=== PATIENT | female | born 1970 | race Caucasian/White ===

== ENCOUNTER → 2016-09-14 | Outpatient (CLI) | payer OTHER | END | disposition home or self-care (01) | LOC: LABWHC1 09:23 | PROVIDERS: ATTEND Psychiatry & Neurology Pain Medicine | DX: E55.9 Vitamin D deficiency, unspecified (principal) | CPT/HCPCS: 36415; 82306 ==

== ENCOUNTER → 2016-12-03 | Outpatient (CLI) | payer OTHER ==
--- NOTE | 2016-12-03 22:22 | MR ---
EXAMINATION TYPE: MR brain wo/w con DATE OF EXAM: 12/03/2016 4:29 PM COMPARISON: MRI brain July 20, 2016. HISTORY: Headaches not further specified per order or patient. TECHNIQUE: Multiplanar, multisequence images of the brain and brainstem is performed without and with IV contras t, utilizing 15 mL intravenous MultiHance . FINDINGS: Diffusion weighted images demonstrate no evidence of a recent infarct or other diffusion ab normality. There is no worrisome extra-axial fluid collection. The ventricular system and cisternal spaces are normal in size and appearance. The brain volume is age appropriate. There are few scatte red foci of T2 hyperintensity seen throughout the white matter bilaterally. Approximately 5-8scattere d lesions are redemonstrated. Lesions are nonspecific in appearance and distribution. Largest measure s 4 mm right posterior frontal lobe on axial image 22. No significant change from prior study is seen . Midline structures demonstrate normal morphology. The craniocervical junction appears within normal limits. Post contrast images demonstrate no abnormal enhancement. The dural venous sinuses appear pa tent. Artifact at level of the bilateral globes is present. There is mild mucosal thickening with dep endent fluid in the left sphenoid sinus on current study. Remainder visualized paranasal sinuses are clear. IMPRESSION: 1. Mild nonspecific white matter changes without significant change from prior study, finding could r eflect ischemic change related to product of migraine headaches. Other etiologies are not excluded. 2. New acute on chronic left sphenoid sinus disease.
== END | disposition home or self-care (01) ==
LOC: RADMRIMAIN 15:42
PROVIDERS: ATTEND Psychiatry & Neurology Pain Medicine
DX: R90.82 White matter disease, unspecified (principal); R51 Headache
CPT/HCPCS: 70553; A9577

== ENCOUNTER → 2017-01-14 | Outpatient (CLI) | payer OTHER ==
--- NOTE | 2017-01-14 22:08 | MR ---
EXAMINATION TYPE: MR cervical spine wo con DATE OF EXAM: 01/14/2017 10:03 PM COMPARISON: NONE HISTORY: ongoing neck pain and stiffness Multiplanar MultiSpin echo imaging of the cervical spine was performed. Comparison: none C2-C3: No evidence for degenerative disc disease. No disc bulge/herniation or protrusion. No Canal stenosis. Foramina are patent bilaterally. C3-C4: No evidence for degenerative disc disease. No disc bulge/herniation or protrusion. No Canal stenosis. Foramina are patent bilaterally. C4-C5: There is mild disc desiccation noted. Mild posterocentral disc bulge with mild effacement vent ral thecal sac. No evidence of disc herniation or central stenosis. Neural foramina are patent bilate rally. C5-C6: Mild disc desiccation with a small left paracentral disc protrusion. Mild effacement ventral t hecal sac. No evidence for cord contact or central stenosis. Neural foramina are patent bilaterally. C6-C7: No evidence for degenerative disc disease. No disc bulge/herniation or protrusion. No Canal stenosis. Foramina are patent bilaterally. C7-T1: No evidence for degenerative disc disease. No disc bulge/herniation or protrusion. No Canal stenosis. Foramina are patent bilaterally. Cervical segments are intact. There is normal alignment. Cervical spinal cord is of normal signal. Craniovertebral junction relationships are within normal limits. IMPRESSION: 1. Degenerative disc disease at C4-5 and C5-6. 2. Small left paracentral disc protrusion C5-6 as noted above.
== END | disposition home or self-care (01) ==
LOC: RADMRIMAIN 21:26
PROVIDERS: ATTEND Physician Assistant Medical
DX: M50.121 Cervical disc disorder at C4-C5 level with radiculopathy (principal); M50.122 Cervical disc disorder at C5-C6 level with radiculopathy
CPT/HCPCS: 72141

== ENCOUNTER → 2017-03-31 | Outpatient (CLI) | payer OTHER | END | disposition home or self-care (01) | LOC: LABWHC1 13:43 | PROVIDERS: ATTEND Psychiatry & Neurology Pain Medicine | DX: G89.4 Chronic pain syndrome (principal) | CPT/HCPCS: 36415; 93005 ==

== ENCOUNTER → 2018-01-25 | Outpatient (CLI) | payer OTHER | END | disposition home or self-care (01) | LOC: LABWHC1 15:35 | PROVIDERS: ATTEND Psychiatry & Neurology Pain Medicine | DX: Z01.812 Encounter for preprocedural laboratory examination (principal) | CPT/HCPCS: 36415; 93005 ==

== ENCOUNTER 2018-08-25 08:52 | Day surgery (SDC) | payer MEDICARE ==
[2018-08-23 17:54] VITALS: BMI 29.2
[~2018-08-25 08:52] MED LIST: LACTATED RINGERS 1,000 ML IV SCH; LIDOCAINE 1% 20 ML VIAL (10MG/ML) FOR IV START INTRADERMA PRN
[2018-08-25 10:13] VITALS: TEMP 99.2
[2018-08-25] MEDS ORDERED: ONDANSETRON 4 MG/2 ML VIAL IVP ONE (10:21)
[2018-08-25] MEDS ORDERED: LIDOCAINE 1% INJ 10MG/ML (20 ML MDV) ONE (10:47)
[2018-08-25] MEDS ORDERED: PROPOFOL 10 MG/ML 20 ML VIAL IV ONE (10:47)
--- NOTE | 2018-08-25 11:16 | P.PCN ---
Date of Procedure: 08/25/18 Procedure(s) Performed: Procedure: Esophagogastroduodenoscopy and biopsy. Preoperative diagnosis: Epigastric pain and nausea and vomiting. Postoperative diagnosis: Sliding hiatal hernia with no obvious esophagitis or complicated reflux disease. Mild antral gastritis. Biopsies obtained from the duodenum, antrum and esophagus. Preparation and sedation: Was provided by anesthesia. Brief clinical history: The patient is a 48-year-old female who is scheduled for this evaluation for epigastric pain, nausea and vomiting off for months duration. She has not improved with acid suppressive therapy. This evaluation is to assess for peptic ulcer disease or other pathology. Procedure: With the patient on her left lateral decubitus position and after informed consent and adequate sedation, I passed the Olympus-GIF 190 H video upper endoscope through the cricopharyngeus down the esophagus. GE junction was around 37 cm from the incisors and there was a 2 cm sliding hiatal hernia but no obvious esophagitis or complicated reflux disease. The endoscope was then passed into the stomach which was insufflated with air and inspected in detail including the retroflex view in the cardia. There was some mottling and erythema in the antrum but no ulcers or erosions. Pyloric channel, duodenal bulb, post bulbar area and descending duodenum appeared within normal limits. Because of her symptoms, I obtained biopsies from the duodenum, antrum and esophagus then the endoscope was withdrawn. The patient tolerated the procedure well. Plan: The patient was reassured. Will await biopsy results and make further plans based on her course and biopsy results. She will follow-up with you as planned and I will be happy to see as outpatient if her symptoms persist.
[2018-08-25 11:17] VITALS: RESP 18
[2018-08-25 11:34] VITALS: BP 105/56; PULSE 80
== END 2018-08-25 12:16 | disposition home or self-care (01) ==
LOC: ORWHC2ENDO 08:52
DX: K29.50 Unspecified chronic gastritis without bleeding (principal); K44.9 Diaphragmatic hernia without obstruction or gangrene; M79.7 Fibromyalgia; K21.9 Gastro-esophageal reflux disease without esophagitis; G43.909 Migraine, unspecified, not intractable, without status migrainosus; G90.50 Complex regional pain syndrome I, unspecified; Z88.5 Allergy status to narcotic agent; Z79.891 Long term (current) use of opiate analgesic; Z79.899 Other long term (current) drug therapy
CPT/HCPCS: 81025; 88305; 43239; J2405; J2001; J2704

== ENCOUNTER 2019-04-03 03:24 | Inpatient (IN) | payer MEDICARE ==
[2019-04-03 04:50] VITALS: BMI 30.4
[2019-04-03] MEDS ORDERED: MORPHINE SULFATE 2 MG/ML SYRINGE IVP PRN (08:35)
[2019-04-03] MEDS: SODIUM CHLORIDE 0.9% 1,000 ML IV SCH ×2 (09:15→18:02)
[2019-04-03 09:38] LABS: Basophils % (A) 0 %; Eosinophils # (A) 0.2 k/uL (0-0.7); Eosinophils % (A) 2 %; HCT 37.5 % (34.0-46.0); HGB 12.4 gm/dL (11.4-16.0); Lymphocytes # (A) 3.1 k/uL (1.0-4.8); Lymphocytes % (A) 35 %; MCH 31.8 pg (25.0-35.0); MCHC 32.9 g/dL (31.0-37.0); MCV 96.5 fL (80.0-100.0); Mean Platelet Volume 7.1; Monocytes # (A) 0.5 k/uL (0-1.0); Monocytes % (A) 6 %; Neutrophils # (A) 5.1 k/uL (1.3-7.7); Neutrophils % (A) 56 %; Platelet Count 280 k/uL (150-450); RBC 3.89 m/uL (3.80-5.40); RDW 12.5 % (11.5-15.5); WBC 9.1 k/uL (3.8-10.6)
[2019-04-03 09:57] LABS: African American GFR (CKD) >90 (>60 ml/min/1.73 sqM); Anion Gap 5 mmol/L; Blood Urea Nitrogen 15 mg/dL (7-17); Calcium 8.5 mg/dL (8.4-10.2); Carbon Dioxide 28 mmol/L (22-30); Chloride 107 mmol/L (98-107); Glucose 75 mg/dL (74-99); Sodium 140 mmol/L (137-145)
--- NOTE | 2019-04-03 10:48 | XR ---
EXAMINATION TYPE: XR KUB DATE OF EXAM: 04/03/2019 10:27 AM CLINICAL HISTORY: Right-sided ureteral calculus. Abdominal pain. TECHNIQUE: Single supine KUB image of the abdomen is obtained. COMPARISON: None. FINDINGS: Oral contrast is seen within the colon. This obscures the course of the right ureter. Contr ast is also seen within the appendix in the right lower quadrant. There are ureteral calculus is not definitively seen. Centrally placed IUD is noted. Few phleboliths in the pelvis. Osseous structures a ppear intact. No dilated large or small bowel. IMPRESSION: The right ureteral calculus is not definitively seen as there is oral contrast throughout the colon and within the appendix obscuring the course of the right ureter.
[2019-04-03] MEDS: ONDANSETRON 4 MG/2 ML VIAL IVP PRN ×2 (10:55→17:59)
--- NOTE | 2019-04-03 13:21 | P.GSCN ---
History of Present Illness Consult date: 04/03/19 Reason for Consult: Right ureteral calculus Requesting physician: Louisa Roberson History of present illness: The patient is a 48-year-old white female with no prior history of urolithiasis. She experienced acute onset of right flank pain radiating to the abdomen on 03/29/2019. For the next several days, her symptoms were available in severity. She was ultimately seen at [facility] and found to have mild right hydronephrosis due to a 5 mm right distal ureteral calculus. She was transferred to [facility] for further management. In addition to pain, she has experienced nausea and vomiting as well as pressure to void. She has not been treated for a UTI in the past 20 years or so. Review of Systems - Constitutional Reports chills, Denies fever - Gastrointestinal Reports nausea, Reports vomiting - Genitourinary Genitourinary: Reports flank pain, Denies hematuria Past Medical History Past Medical History: Fibromyalgia, GERD/Reflux Additional Past Medical History / Comment(s): frequent nausea & dry heaves for 4 months, abd pain, RSD, chronic migraines, has IUD, urinary frequency, chronic back and neck pain- herniated bulging discs in neck History of Any Multi-Drug Resistant Organisms: None Reported Past Surgical History: Orthopedic Surgery, Tubal Ligation Additional Past Surgical History / Comment(s): arthroscopic knee surgeries, colonoscopy, D & C Past Anesthesia/Blood Transfusion Reactions: Postoperative Nausea & Vomiting (PONV) Smoking Status: Former smoker Past Alcohol Use History: Rare Additional Past Alcohol Use History / Comment(s): quit smoking 2013, smoked since teens 1ppd Past Drug Use History: None Reported - Past Family History Mother Family Medical History: CVA/TIA, Myocardial Infarction ([place]) Medications and Allergies Home Medications Medication Instructions Recorded Confirmed Type HYDROcodone/APAP 10-325MG [[place] 1 tab PO Q6H PRN 09/14/16 04/03/19 History 10-325] Ibuprofen [Motrin] 600 mg PO Q6HR PRN 09/14/16 04/03/19 History Cetirizine HCl [Zyrtec] 10 mg PO DAILY 08/23/18 04/03/19 History Esomeprazole Magnesium [NexIUM] 40 mg PO DAILY 08/23/18 04/03/19 History Fluticasone Nasal [place] [Flonase 2 spr EA NOSTRIL DAILY 08/23/18 04/03/19 Histor y Nasal [place]] Prochlorperazine [Compazine] 10 mg PO Q6H PRN 08/23/18 04/03/19 History diphenhydrAMINE [Benadryl] 25 mg PO BID PRN 08/23/18 04/03/19 History Gabapentin [Neurontin] 300 mg PO BID 04/03/19 04/03/19 History Methocarbamol [Robaxin] 500 mg PO HS PRN 04/03/19 04/03/19 History Mirabegron [Myrbetriq] 50 mg PO DAILY 04/03/19 04/03/19 History Allergies Allergy/AdvReac Type Severity Reaction Status Date / Time codeine AdvReac Nausea Verified 04/03/19 08:09 Surgical - Exam Vital Signs Temp Pulse Resp BP Pulse Ox 98.2 F 71 18 113/74 97 04/03/19 04:35 04/03/19 04:35 04/03/19 04:35 04/03/19 04:35 04/03/19 04:35 - General well developed, well nourished, no distress - Neck no masses, trachea midline - Abdomen Abdomen: soft, tender (Mild right lower quadrant tenderness), no guarding, no rigid, no rebound, no distended - Psychiatric oriented to time, oriented to person, oriented to place, speech is normal, memory intact Results - Labs 04/03/19 09:18 04/03/19 09:18 Diabetes panel 04/03/19 Range/Units 09:18 Sodium 140 (137-145) mmol/L Potassium 4.0 (3.5-5.1) mmol/L Chloride 107 (98-107) mmol/L Carbon Dioxide 28 (22-30) mmol/L BUN 15 (7-17) mg/dL Creatinine 0.79 (0.52-1.04) mg/dL Glucose 75 (74-99) mg/dL Calcium 8.5 (8.4-10.2) mg/dL Calcium panel 04/03/19 Range/Units 09:18 Calcium 8.5 (8.4-10.2) mg/dL Pituitary panel 04/03/19 Range/Units 09:18 Sodium 140 (137-145) mmol/L Potassium 4.0 (3.5-5.1) mmol/L Chloride 107 (98-107) mmol/L Carbon Dioxide 28 (22-30) mmol/L BUN 15 (7-17) mg/dL Creatinine 0.79 (0.52-1.04) mg/dL Glucose 75 (74-99) mg/dL Calcium 8.5 (8.4-10.2) mg/dL Adrenal panel 04/03/19 Range/Units 09:18 Sodium 140 (137-145) mmol/L Potassium 4.0 (3.5-5.1) mmol/L Chloride 107 (98-107) mmol/L Carbon Dioxide 28 (22-30) mmol/L BUN 15 (7-17) mg/dL Creatinine 0.79 (0.52-1.04) mg/dL Glucose 75 (74-99) mg/dL Calcium 8.5 (8.4-10.2) mg/dL - Imaging Abdominal x-ray: report reviewed, image reviewed CT scan - abdomen: report reviewed Assessment and Plan (1) Calculus of ureter Current Visit: Yes Status: Acute Code(s): N20.1 - CALCULUS OF URETER SNOMED Code(s): 11489496 (2) Hydronephrosis with renal and ureteral calculus obstruction Current Visit: Yes Status: Acute Code(s): N13.2 - HYDRONEPHROSIS WITH RENAL AND URETERAL CALCULOUS OBSTRUCTION SNOMED Code(s): 673170655 Plan: I had a very lengthy discussion with the patient regarding her ureteral calculus. Urinalysis showed 510 WBCs/HPF, but only trace leukocyte esterase and negative nitrate. A urine culture is pending, but I do not believe she is infected. The stone is visible on a KUB x-ray performed this morning. It should be noted that contrast is seen within a mildly dilated right ureter down to the calculus. I explained that her stone has approximately a 75% chance of passing. Management options include medical expulsion therapy, ureteroscopy with laser lithotripsy, and extracorporal shockwave lithotripsy (ESWL). The pros and cons of each approach were reviewed in detail, as well as potential risks. She has elected to undergo ESWL on 04/06/2019, the next available date. Arrangements will be made for this, and I'm hopeful that her symptoms can be controlled with oral medication to allow discharge either later today or tomorrow. Time with Patient: Greater than 30
[2019-04-03] MEDS ORDERED: HYDROcodone/APAP 5-325MG 1 EACH TAB PO PRN (15:53)
[2019-04-03] MEDS: KETOROLAC 30 MG/ML 1 ML VIAL IVP PRN (17:57)
[2019-04-03] MEDS: HYDROcodone/APAP 5-325MG 1 EACH TAB PO PRN (20:03)
--- NOTE | 2019-04-03 20:33 | P.HPIM ---
History of Present Illness H&P Date: 04/03/19 Chief Complaint: Abdominal pain Patient is a 48-year-old female with known history of fibromyalgia, GERD usually presented to hospital with complaints of right lower quadrant abdominal pain started since 03/29/2019. Patient says that the pain extended to right flank and back pain. Patient did have nausea and vomiting. Patient was also having trouble voiding for the past few days. Patient presents to ER at [facility] yesterday where She had CT abdomen pelvis showed a 5 mL right ureteral stone with hydronephrosis. Patient was eventually transferred to [facility] for evaluation by urology. Patient was also found have cloudy urine with large leukocyte esterase and elevated WBC in the urinalysis. Patient was given a dose of Zosyn before transfer. Urine culture was sent. Patient denied any fever or chills. No chest pain or shortness of breath. No headache or dizziness or lightheadedness. Review of Systems Constitutional: Patient denies any fever or chills . No generalized weakness or weight loss. Abdomen: Patient denied nausea vomiting and diarrhea and abdominal pain. Right flank pain and right lower quadrant pain. Cardiovascular: Patient denies any chest pain or short of breath no palpitations. Respiratory: patient denied any cough is from production. No shortness of breath Neurologic: Patient denied any numbness or tingling headache. Musculoskeletal: Patient denies any complaints of joint swelling or deformity. Skin: Negative Psychiatric: Negative Endocrine: No heat or cold intolerance. No recent weight gain. Genitourinary: No dysuria or hematuria. All other 14 point ROS negative except the above Past Medical History Past Medical History: Fibromyalgia, GERD/Reflux Additional Past Medical History / Comment(s): frequent nausea & dry heaves for 4 months, abd pain, RSD, chronic migraines, has IUD, urinary frequency, chronic back and neck pain- herniated bulging discs in neck History of Any Multi-Drug Resistant Organisms: None Reported Past Surgical History: Orthopedic Surgery, Tubal Ligation Additional Past Surgical History / Comment(s): arthroscopic knee surgeries, colonoscopy, D & C Past Anesthesia/Blood Transfusion Reactions: Postoperative Nausea & Vomiting (PONV) Smoking Status: Former smoker Past Alcohol Use History: Rare Additional Past Alcohol Use History / Comment(s): quit smoking 2013, smoked since teens 1ppd Past Drug Use History: None Reported - Past Family History Mother Family Medical History: CVA/TIA, Myocardial Infarction ([place]) Medications and Allergies Home Medications Medication Instructions Recorded Confirmed Type HYDROcodone/APAP 10-325MG [[place] 1 tab PO Q6H PRN 09/14/16 04/03/19 History 10-325] Ibuprofen [Motrin] 600 mg PO Q6HR PRN 09/14/16 04/03/19 History Cetirizine HCl [Zyrtec] 10 mg PO DAILY 08/23/18 04/03/19 History Esomeprazole Magnesium [NexIUM] 40 mg PO DAILY 08/23/18 04/03/19 History Fluticasone Nasal [place] [Flonase 2 spr EA NOSTRIL DAILY 08/23/18 04/03/19 History Nasal [place]] Prochlorperazine [Compazine] 10 mg PO Q6H PRN 08/23/18 04/03/19 History diphenhydrAMINE [Benadryl] 25 mg PO BID PRN 08/23/18 04/03/19 History Gabapentin [Neurontin] 300 mg PO BID 04/03/19 04/03/19 History Methocarbamol [Robaxin] 500 mg PO HS PRN 04/03/19 04/03/19 History Mirabegron [Myrbetriq] 50 mg PO DAILY 04/03/19 04/03/19 History Allergies Allergy/AdvReac Type Severity Reaction Status Date / Time codeine AdvReac Nausea Verified 04/03/19 08:09 Physical Exam Vitals: Vital Signs Temp Pulse Pulse Resp BP BP Pulse Ox 04/03/19 12:18 98.0 F 67 16 94/60 97 04/03/19 09:00 98.2 F 76 18 111/66 97 04/03/19 04:35 98.2 F 71 18 113/74 97 Intake and Output 04/03/19 04/03/19 04/03/19 06:59 14:59 22:59 Output Total 400 Balance -400 Output: Urine 400 Other: Voiding Method Toilet Toilet Weight 80.5 kg PHYSICAL EXAMINATION: Patient is lying in the bed comfortably, no acute distress, awake alert and oriented.. HEENT: Normocephalic. Neck is supple. Pupils reactive. Nostrils clear. Oral cavity is moist. Ears reveal no drainage. Neck reveals no JVD, carotid bruits, or thyromegaly. CHEST EXAMINATION: Trachea is central. Symmetrical expansion. Lung gee clear to auscultation and percussion. CARDIAC: Normal S1, S2 with no gallops. No murmurs ABDOMEN: Soft. Right flank tenderness. Bowel sounds normal. No organomegaly. No abdominal bruits. Extremities: reveal no edema. No clubbing or cyanosis Neurologically awake, alert, oriented x3 with well-coordinated movements. No focal deficits noted Skin: No rash or skin lesions. Psychiatric: Coperative. Nonsuicidal Musculoskeletal: No joint swelling or deformity. Normal range of motion. Results CBC & Chem 7: 04/03/19 09:18 04/03/19 09:18 Thrombosis Risk Factor Assmnt - DVT/VTE Prophylaxis DVT/VTE Prophylaxis: Pharmacologic Prophylaxis ordered - Choose All That Apply Any of the Below Risk Factors Present?: Yes Each Factor Represents 1 point: Age 41-60 years Other Risk Factors: No Other congenital or acquired thrombophilia - If yes, enter type in comment: No Thrombosis Risk Factor Assessment Total Risk Factor Score: 1 Thrombosis Risk Factor Assessment Level: Low Risk Assessment and Plan Assessment: Right distal ureteral obstructing stone Right hydronephrosis Acute urinary tract infection Fibromyalgia GERD DVT prophylaxis Plan: Patient will be continued on IV hydration. Pain management with morphine, [place] and Toradol as needed. Follow-up urine culture reports. Continue with antibiotics and ceftriaxone. Urology is planning for lithotripsy on 04/06/2019. Anticipate to be discharged home with improvement in pain. Further recommendations based on the clinical course. Time with Patient: Greater than 30
[2019-04-03] MEDS: TAMSULOSIN 0.4 MG CAP.ER.24H PO SCH (21:54)
[2019-04-04] MEDS ORDERED: HEPARIN SODIUM,PORCINE 5,000 UNIT/ML 1 ML VIAL SQ SCH
[2019-04-04] MEDS: KETOROLAC 30 MG/ML 1 ML VIAL IVP PRN ×2 (00:13→07:21)
[2019-04-04] MEDS: SODIUM CHLORIDE 0.9% 1,000 ML IV SCH ×3 (00:13→10:02)
[2019-04-04 00:24] VITALS: TEMP 97.9
--- NOTE | 2019-04-04 07:47 | P.PN ---
Progress Note - Text Progress Note Date: 04/04/19 Mrs. Bender is more comfortable this morning. She continues to experience right- sided pain, but has not required narcotic analgesics. She will be discharged home today, and arrangements will be made for her to undergo ESWL on 04/06/2019.
[2019-04-04] MEDS: HYDROcodone/APAP 5-325MG 1 EACH TAB PO PRN (08:22)
[2019-04-04] MEDS: TAMSULOSIN 0.4 MG CAP.ER.24H PO SCH (08:22)
[2019-04-04 08:29] LABS: African American GFR (CKD) >90 (>60 ml/min/1.73 sqM); Anion Gap 4 mmol/L; Blood Urea Nitrogen 6 mg/dL (7-17); Calcium 8.1 mg/dL (8.4-10.2); Carbon Dioxide 25 mmol/L (22-30); Chloride 111 mmol/L (98-107); Glucose 90 mg/dL (74-99); Potassium 3.9 mmol/L (3.5-5.1); Sodium 140 mmol/L (137-145)
[2019-04-04 08:34] LABS: Basophils % (A) 1 %; Eosinophils # (A) 0.2 k/uL (0-0.7); Eosinophils % (A) 3 %; HCT 35.5 % (34.0-46.0); HGB 11.6 gm/dL (11.4-16.0); Lymphocytes # (A) 2.8 k/uL (1.0-4.8); Lymphocytes % (A) 48 %; MCH 31.8 pg (25.0-35.0); MCHC 32.8 g/dL (31.0-37.0); Mean Platelet Volume 7.4; Monocytes # (A) 0.4 k/uL (0-1.0); Monocytes % (A) 6 %; Neutrophils # (A) 2.3 k/uL (1.3-7.7); Neutrophils % (A) 40 %; Platelet Count 269 k/uL (150-450); RBC 3.66 m/uL (3.80-5.40); RDW 12.8 % (11.5-15.5); WBC 5.8 k/uL (3.8-10.6)
[2019-04-04 09:24] VITALS: BP 109/70; PULSE 71; RESP 16
--- NOTE | 2019-04-04 13:47 | P.DS ---
Providers Date of admission: 04/03/19 04:32 Expected date of discharge: 04/04/19 Attending physician: Louisa Roberson Consults: 04/03/19 08:59 Consult Physician Urgent Consulting Provider: Kyree Sanderson Consult Reason/Comments: RIGHT URETERAL STONE Do you want consulting provider notified?: Yes Primary care physician: Stated None Hospital Course: Final diagnosis Right distal ureteral obstructing stone Right hydronephrosis Acute urinary tract infection Fibromyalgia GERD DVT prophylaxis Discharge disposition Patient is being discharged in a stable condition with guarded prognosis to home and will follow-up with urology on 04/06/2019 for a lithotripsy procedure. Urine cultures have come back negative and patient will not go home on any antibiotics at this time. History of present illness This is a 48-year-old female who was admitted with right flank pain and back pain and was found to have a right-sided ureteral stone with hydronephrosis and was being closely monitored. Urology was following closely. Patient was on IV Rocephin for urinary tract infection and urine cultures were sent. Urine cultures have been negative and will not be requiring antibiotics in the outpatient setting. Patient is scheduled to have lithotripsy in the office on 04/06/2019 with urology. Patient denies any chest pain, shortness of breath, or palpitations at this time. Patient denies any nausea or vomiting and is tolerating diet. Patient does have some mild right lower back discomfort but is being controlled with oral medications. Patient will be going home on pain medi cation per urology. Patient is passing urine with no difficulties at this time. Patient is afebrile. Currently patient's condition is stable with much improvement. Guarded prognosis. On exam vital signs are stable. Blood pressure is 109/70, pulse is 71, respirations are 16, temp is 97.9F, oxygen saturation is 96% on room air. Cardio S1 and S2 are normal. Respiratory system shows clear to auscultation. Abdomen is soft and non-tender. No CVA tenderness noted on exam. Nervous system shows no focal deficits and gait is steady. Please refer to medication reconciliation sheet for a list of medications. Patient Condition at Discharge: Good Plan - Discharge Summary New Discharge Prescriptions: New Hydrocodone/Acetaminophen [[place] 5-325] 1 - 2 each PO Q4HR PRN #10 tab PRN Reason: Pain Ketorolac [Toradol] 10 mg PO Q6HR #12 tab Tamsulosin [Flomax] 0.4 mg PO DAILY 30 Days #30 cap.er.24h Continue Ibuprofen [Motrin] 600 mg PO Q6HR PRN PRN Reason: Pain HYDROcodone/APAP 10-325MG [[place] 10-325] 1 tab PO Q6H PRN PRN Reason: Pain Scale 6 To 10 diphenhydrAMINE [Benadryl] 25 mg PO BID PRN PRN Reason: allergies Prochlorperazine [Compazine] 10 mg PO Q6H PRN PRN Reason: Nausea Fluticasone Nasal [place] [Flonase Nasal [place]] 2 spr EA NOSTRIL DAILY Cetirizine HCl [Zyrtec] 10 mg PO DAILY Esomeprazole Magnesium [NexIUM] 40 mg PO DAILY Mirabegron [Myrbetriq] 50 mg PO DAILY Gabapentin [Neurontin] 300 mg PO BID Methocarbamol [Robaxin] 500 mg PO HS PRN PRN Reason: Spasms Discharge Medication List HYDROcodone/APAP 10-325MG [[place] 10-325] 1 tab PO Q6H PRN 09/14/16 [History] Ibuprofen [Motrin] 600 mg PO Q6HR PRN 09/14/16 [History] Cetirizine HCl [Zyrtec] 10 mg PO DAILY 08/23/18 [History] Esomeprazole Magnesium [NexIUM] 40 mg PO DAILY 08/23/18 [History] Fluticasone Nasal [place] [Flonase Nasal [place]] 2 spr EA NOSTRIL DAILY 08/23/18 [History] Prochlorperazine [Compazine] 10 mg PO Q6H PRN 08/23/18 [History] diphenhydrAMINE [Benadryl] 25 mg PO BID PRN 08/23/18 [History] Gabapentin [Neurontin] 300 mg PO BID 04/03/19 [History] Methocarbamol [Robaxin] 500 mg PO HS PRN 04/03/19 [History] Mirabegron [Myrbetriq] 50 mg PO DAILY 04/03/19 [History] Hydrocodone/Acetaminophen [[place] 5-325] 1 - 2 each PO Q4HR PRN #10 tab 04/04/19 [Rx] Ketorolac [Toradol] 10 mg PO Q6HR #12 tab 04/04/19 [Rx] Tamsulosin [Flomax] 0.4 mg PO DAILY 30 Days #30 cap.er.24h 04/04/19 [Rx] Follow up Appointment(s)/Referral(s): Kyree Sanderson MD [STAFF PHYSICIAN] - 04/13/19 2:20 pm Activity/Diet/Wound Care/Special Instructions: Diet as tolerated. Advised patient not to take Motrin or any NSAIDs. Strain urine supplies given. Activity limited until follow up. Follow up with urology on 04/06/19 for lithotripsy Follow up with primary care provider this week. Call physician with any questions comments concerns worsening returning symptoms, fever 101.1 or higher, increased pain not controlled by medication prescribed, not tolerating diet or fluids. Discharge Disposition: HOME SELF-CARE
== END 2019-04-04 10:20 | disposition home or self-care (01) | DRG 690 ==
LOC: 6PED 04:32
PROVIDERS: ADMIT Internal Medicine; ATTEND Internal Medicine
DX: N13.6 Pyonephrosis (principal); G90.50 Complex regional pain syndrome I, unspecified; K21.9 Gastro-esophageal reflux disease without esophagitis; M79.7 Fibromyalgia; M50.20 Other cervical disc displacement, unspecified cervical region; M54.9 Dorsalgia, unspecified; R35.0 Frequency of micturition; Z79.899 Other long term (current) drug therapy; Z87.891 Personal history of nicotine dependence; Z86.69 Personal history of other diseases of the nervous system and sense organs; Z98.51 Tubal ligation status; Z88.5 Allergy status to narcotic agent; Z82.49 Family history of ischemic heart disease and other diseases of the circulatory system; Z82.3 Family history of stroke
CPT/HCPCS: 74018; 80048; 85025; 87086

== ENCOUNTER → 2019-04-13 | Outpatient (CLI) | payer MEDICARE ==
--- NOTE | 2019-04-13 14:47 | XR ---
EXAMINATION TYPE: XR abdomen 1V DATE OF EXAM: 04/13/2019 COMPARISON: 04/03/2019 HISTORY: Right-sided lithotripsy TECHNIQUE: One view abdominal series FINDINGS: The osseous structures are intact. The bowel gas pattern is nonspecific. There is an intrauterine de vice. Calcifications in the left hemipelvis are stable. A calcification measuring 3 mm in the distal right pelvis is no longer seen. Additional density in the upper right pelvis is stable but is seen to lie outside the course of the r ight ureter on previous exam. IMPRESSION: 1. Distal right ureteral calculus is no longer identified on today's exam.
== END | disposition home or self-care (01) ==
LOC: RADXRMAIN 14:09
PROVIDERS: ATTEND Urology
DX: N20.1 Calculus of ureter (principal)
CPT/HCPCS: 74018

== ENCOUNTER → 2019-04-28 | Outpatient (CLI) | payer MEDICARE, OTHER | END | disposition home or self-care (01) | LOC: LABWHC1 14:11 | PROVIDERS: ATTEND Psychiatry & Neurology Pain Medicine | DX: Z01.818 Encounter for other preprocedural examination (principal) | CPT/HCPCS: 36415; 93005 ==

== ENCOUNTER → 2019-05-19 | Outpatient (CLI) | payer MEDICARE, OTHER ==
--- NOTE | 2019-05-19 14:20 | XR ---
Lumbar spine HISTORY: Back pain 3 views of the lumbar spine correlated to prior exam 01/26/2014 . Minimal anterolisthesis grade 1 L5-S1, is associated loss of disc height. Spina bifida occulta note d at L5. Sclerosis present in the posterior elements. Multilevel spondylosis is present. Lumbar verte bral bodies show preserved height and bone mineralization. IMPRESSION: Spondylolysis L5 bilaterally with spondylolisthesis.
== END | disposition home or self-care (01) ==
LOC: RADXRMAIN 11:24
PROVIDERS: ATTEND Family Medicine
DX: M43.16 Spondylolisthesis, lumbar region (principal); M79.7 Fibromyalgia
CPT/HCPCS: 72100

== ENCOUNTER 2020-02-12 09:59 | Day surgery (SDC) | payer MEDICARE, OTHER ==
[~2020-02-12 09:59] MED LIST changes: -LIDOCAINE 1% 20 ML VIAL (10MG/ML) FOR IV START INTRADERMA PRN
[2020-02-12 10:17] VITALS: RESP 16; TEMP 97.7
[2020-02-12] MEDS ORDERED: ONDANSETRON 4 MG/2 ML VIAL ONE (10:36)
[2020-02-12] MEDS ORDERED: ONDANSETRON 4 MG/2 ML VIAL IVP ONE (10:36)
[2020-02-12] MEDS ORDERED: LIDOCAINE 1% INJ 10MG/ML (20 ML MDV) ONE (11:19)
[2020-02-12] MEDS ORDERED: PROPOFOL 10 MG/ML 20 ML VIAL IV ONE (11:19)
--- NOTE | 2020-02-12 12:21 | P.PCN ---
Date of Procedure: 02/12/20 Description of Procedure: BRIEF HISTORY: Patient is a 49-year-old female presenting for outpatient colonoscopy for evaluation of positive Cologard. She does report a colonoscopy in the past. Denies any change in bowel habits, blood per rectum or abdominal pain. Does have problems with constipation. PROCEDURE PERFORMED: Colonoscopy with polypectomy. PREOPERATIVE DIAGNOSIS: Positive Cologard. ESTIMATED BLOOD LOSS: Minimal. IV sedation per Anesthesia. PROCEDURE: After informed consent was obtained, the patient, was brought into the endoscopy unit. IV sedation was administered by Anesthesia under continuous monitoring. Digital rectal examination was normal. Initially the Olympus CF-190 flexible video colonoscope was then inserted in the rectum, gradually advanced into the cecum without any difficulty. Careful examination was performed as the scope was gradually being withdrawn. Ileocecal valve and the appendiceal orifice were visualized and appeared normal. Prep was excellent. Mucosa of the cecum, ascending colon, transverse colon, descending colon, sigmoid colon, and rectum appeared normal. The colon was redundant and tortuous. 2 diminutive 2 mm cecal polyps removed with cold forcep polypectomy. One flat 8 mm ascending colon polyp in piecemeal fashion with cold forcep polypectomy, location on the back of old. 2 diminutive 2 mm sigmoid polyps removed with cold forcep polypectomy. Retroflexion was performed in the rectum and no lesions were seen. The patient tolerated the procedure well. IMPRESSION: 4 diminutive polyps with cold forcep polypectomy, 2 from the sigmoid and 2 from the ascending colon. Flat 8 mm ascending colon polyp removed in piecemeal fashion with cold forceps due to location on the back of a fold. Redundant colon. RECOMMENDATIONS: Findings of this examination were discussed with the patient. Okay to resume diet. Okay to resume medications. Await pathology from biopsies. Would recommend repeat colonoscopy in 1 year to piecemeal resection of polyp.
[2020-02-12 12:39] VITALS: BP 139/76; PULSE 90
== END 2020-02-12 13:13 | disposition home or self-care (01) ==
LOC: ORWHC2ENDO 09:59
PROVIDERS: ATTEND Internal Medicine
DX: D12.2 Benign neoplasm of ascending colon (principal); D12.0 Benign neoplasm of cecum; D12.5 Benign neoplasm of sigmoid colon; Q43.8 Other specified congenital malformations of intestine; M79.7 Fibromyalgia; G90.50 Complex regional pain syndrome I, unspecified; K21.9 Gastro-esophageal reflux disease without esophagitis; Z88.5 Allergy status to narcotic agent; Z87.891 Personal history of nicotine dependence; Z79.899 Other long term (current) drug therapy; Z79.891 Long term (current) use of opiate analgesic; Z79.1 Long term (current) use of non-steroidal anti-inflammatories (NSAID); Z98.51 Tubal ligation status; Z98.890 Other specified postprocedural states; Z97.2 Presence of dental prosthetic device (complete) (partial); Z91.89 Other specified personal risk factors, not elsewhere classified
CPT/HCPCS: 81025; 88305; 45380; J2405; J2001; J2704